=== PATIENT | male | born 1975 | race Caucasian/White ===

== ENCOUNTER 2017-12-04 07:15 | Emergency (ER) | payer BC, OTHER ==
[~2017-12-04] VITALS: Ht 175.3 cm; Wt 78.5 kg
[2017-12-04 07:22] VITALS: TEMP 36.9; Ht 175.3 cm; Wt 78.5 kg
[2017-12-04] MEDS ORDERED: MoRPHine SULFATE 10 MG/ML CARP/VIAL IV STA (07:43)
[2017-12-04] MEDS ORDERED: ONDANSETRON INJ 2 MG/ML 2 ML VIAL IV STA (07:43)
[2017-12-04] MEDS ORDERED: KETOROLAC TROMETHAMINE 30 MG/ML VIAL IV STA (07:43)
[2017-12-04] MEDS ORDERED: SODIUM CHLORIDE 0.9% 1000ML 1,000 ML IV STA (07:43)
[2017-12-04] MEDS ORDERED: TAMSULOSIN HCL 0.4 MG CAP PO ONE (07:45)
[2017-12-04 08:26] VITALS: O2SAT 98
[2017-12-04 08:49] LABS: BASO % 0.3 %; BASO ABS # 0.02 K/uL (0-0.2); EOS % 2.2 %; EOS ABS # 0.14 K/uL (0-0.5); HEMATOCRIT 40.9 % (42-52); HEMOGLOBIN 14.3 g/dL (14.0-18.0); IG# 0.01 K/uL (0.00-0.02); LYMPH % 21.1 %; LYMPH ABS # 1.34 K/uL (1.2-3.4); MEAN CELL VOLUME 91.1 fL (80-100); MEAN CORPUSCULAR HEMOGLOBIN 31.8 pg (25-34); MEAN PLATELET VOLUME 9.8 fL (7.4-10.4); MONO % 10.1 %; MONO ABS # 0.64 K/uL (0.11-0.59); NEUT % 66.1 %; NEUT ABS # 4.19 K/uL (1.4-6.5); PLATELET COUNT 154 K/uL (130-400); RED CELL DISTRIBUTION WIDTH CV 13.3 % (11.5-14.5); RED CELL DISTRIBUTION WIDTH SD 43.9 fL (36.4-46.3); WHITE BLOOD COUNT 6.34 K/uL (4.8-10.8)
--- NOTE | 2017-12-04 09:10 | DIAGNOSTIC IMAGING REPORT ---
CT SCAN OF THE ABDOMEN AND PELVIS WITHOUT IV CONTRAST CLINICAL HISTORY: Right flank pain. Hematuria. COMPARISON STUDY: No priors. TECHNIQUE: CT scan of the abdomen and pelvis is performed from the lung bases to the proximal femora. Images are reviewed in the axial, sagittal, and coronal planes. IV contrast was not administered for this examination. A dose lowering technique was utilized adhering to the principles of ALARA. CT DOSE: 589.11 mGy.cm FINDINGS: Lung bases: The heart is normal in size and without pericardial effusion. Small fat-containing Bochdalek hernias are present at both lung bases. No airspace consolidation or pleural effusion is identified. An indeterminant but low suspicion 3 mm right middle lobe pulmonary nodule is seen on image #18. Liver: The unenhanced liver is top normal in size and demonstrates diffusely diminished attenuation consistent with hepatic steatosis. Fatty sparing is noted adjacent to gallbladder fossa. There is no intrahepatic biliary ductal dilatation. Gallbladder: Unremarkable. Spleen: Normal in size and attenuation. Pancreas: Unremarkable. Adrenal glands: Unremarkable. Kidneys: The unenhanced kidneys are normal in size. There is a 5 mm obstructing calculus in the right proximal ureter at the level of L3 located just below the ureteropelvic junction seen on axial image #198. This causes mild right hydronephrosis with associated perinephric stranding. No additional calculi are identified in either kidney. There is no evidence of contour deforming renal mass lesion. Abdominal vasculature: The abdominal aorta is normal in course and caliber. Bowel: There is mild colonic fecal retention. No bowel obstruction is seen. The appendix is well-visualized and normal. Peritoneum: There is no intraperitoneal free air or abdominal ascites. Lymphadenopathy: None. Pelvic viscera: The bladder, prostate, and seminal vesicles are normal as imaged. There is a tiny fat-containing right inguinal hernia. Skeletal structures: No lytic or blastic lesions are seen. IMPRESSION: 1. There is a 5 mm obstructing calculus in the right proximal ureter located just below the ureteropelvic junction. This causes mild right hydronephrosis. 2. No additional calculi are identified in either kidney. 3. Hepatic steatosis. 4. Additional findings as above. Electronically signed by: Corey Clarke M.D. 12/04/2017 9:08 AM Dictated Date/Time: 12/04/2017 9:01 AM
[2017-12-04 09:15] LABS: CALCIUM 8.6 mg/dl (8.5-10.1); CREATININE 1.04 mg/dl (0.60-1.40)
[2017-12-04 09:37] VITALS: BP 133/95; PULSE 76; O2SAT 98
[2017-12-04] MEDS ORDERED: OXYC-737 PO (09:38)
[2017-12-04] MEDS ORDERED: TAMS0.4C38 PO (09:38)
[2017-12-04] MEDS ORDERED: ONDA4TAB10 SL (09:38)
--- NOTE | 2017-12-04 09:39 | EMERGENCY ROOM VISIT NOTE ---
History First contact with patient: 07:24 Chief Complaint: BACK PAIN Stated Complaint: PAIN IN BACK NEAR KIDNEY History of Present Illness The patient is a 42 year old male who presents to the Emergency Room with complaints of right flank pain which started this morning when he got out of bed. He was unsure if he twisted his back when he got up but the pain is different than he had in the past with the muscular skeletal strain. Patient states the pain comes and goes. It is a sharp pain and doubles him over. He denies any associated nausea vomiting or change in bowel habits. The patient denies any fever but states when he gets his attacks of pain he gets clammy. The patient states that he has been trying to drink a lot of water this morning. He has not urinated yet this morning. The patient denies any dysuria , hematuria, urgency or dysuria. The patient denies any personal history of kidney stones but does admit to a family history of kidney stones. He is followed by [facility] PCP. Review of Systems 10 system review was performed and was negative unless stated otherwise history of present illness. Past Medical/Surgical History Medical Problems: (1) Epilepsy Family History Heart disease Social History Smoking Status: Never Smoker Drug Use: none Marital Status: Housing Status: lives with family Occupation Status: employed Current/Historical Medications Scheduled Lamotrigine (Lamictal), 300 MG PO AMHS Physical Exam Vital Signs Date Time Temp Pulse Resp B/P (MAP) Pulse Ox O2 Delivery O2 Flow Rate FiO2 12/04/17 08:26 98 Room Air 12/04/17 08:25 76 20 127/90 96 Room Air 12/04/17 07:22 36.9 80 18 146/92 96 Room Air Physical Exam GENERAL: 42-year-old white male appears in no acute distress. MENTAL Status: Alert and oriented 3. MOUTH: Mucosa is moist NECK: Supple, no lymphadenopathy noted. No carotid bruits noted. LUNGS: Clear auscultation without wheezes rales or rhonchi. CARDIAC: Regular rate and rhythm without murmur. Pulses is full and equal throughout. BACK: No CVA tenderness noted. ABDOMEN: Positive bowel sounds all 4 quadrants. Soft, nontender to palpation without organomegaly or masses. EXTREMITIES: No cyanosis or edema noted. Medical Decision & Procedures ER Provider Diagnostic Interpretation: CT SCAN OF THE ABDOMEN AND PELVIS WITHOUT IV CONTRAST CLINICAL HISTORY: Right flank pain. Hematuria. COMPARISON STUDY: No priors. TECHNIQUE: CT scan of the abdomen and pelvis is performed from the lung bases to the proximal femora. Images are reviewed in the axial, sagittal, and coronal planes. IV contrast was not administered for this examination. A dose lowering technique was utilized adhering to the principles of ALARA. CT DOSE: 589.11 mGy.cm FINDINGS: Lung bases: The heart is normal in size and without pericardial effusion. Small fat-containing Bochdalek hernias are present at both lung bases. No airspace consolidation or pleural effusion is identified. An indeterminant but low suspicion 3 mm right middle lobe pulmonary nodule is seen on image #18. Liver: The unenhanced liver is top normal in size and demonstrates diffusely diminished attenuation consistent with hepatic steatosis. Fatty sparing is noted adjacent to gallbladder fossa. There is no intrahepatic biliary ductal dilatation. Gallbladder: Unremarkable. Spleen: Normal in size and attenuation. Pancreas: Unremarkable. Adrenal glands: Unremarkable. Kidneys: The unenhanced kidneys are normal in size. There is a 5 mm obstructing calculus in the right proximal ureter at the level of L3 located just below the ureteropelvic junction seen on axial image #198. This causes mild right hydronephrosis with associated perinephric stranding. No additional calculi are identified in either kidney. There is no evidence of contour deforming renal mass lesion. Abdominal vasculature: The abdominal aorta is normal in course and caliber. Bowel: There is mild colonic fecal retention. No bowel obstruction is seen. The appendix is well-visualized and normal. Peritoneum: There is no intraperitoneal free air or abdominal ascites. Lymphadenopathy: None. Pelvic viscera: The bladder, prostate, and seminal vesicles are normal as imaged. There is a tiny fat-containing right inguinal hernia. Skeletal structures: No lytic or blastic lesions are seen. IMPRESSION: 1. There is a 5 mm obstructing calculus in the right proximal ureter located just below the ureteropelvic junction. This causes mild right hydronephrosis. 2. No additional calculi are identified in either kidney. 3. Hepatic steatosis. 4. Additional findings as above. Electronically signed by: Corey Clarke M.D. 12/04/2017 9:08 AM Laboratory Results 12/04/17 08:38 Red Blood Count 4.49, Mean Corpuscular Volume 91.1, Mean Corpuscular Hemoglobin 31.8, Mean Corpuscular Hemoglobin Concent 35.0, Mean Platelet Volume 9.8, Neutrophils (%) (Auto) 66.1, Lymphocytes (%) (Auto) 21.1, Monocytes (%) (Auto) 10.1, Eosinophils (%) (Auto) 2.2, Basophils (%) (Auto) 0.3, Neutrophils # (Auto ) 4.19, Lymphocytes # (Auto) 1.34, Monocytes # (Auto) 0.64, Eosinophils # (Auto ) 0.14, Basophils # (Auto) 0.02 12/04/17 08:38 Test 12/04/17 08:27 12/04/17 08:38 Urine Color YELLOW Urine Appearance CLEAR (CLEAR) Urine pH 5.0 (4.5-7.5) Urine Specific Saffell 1.025 (1.000-1.030) Urine Protein NEG (NEG) Urine Glucose (UA) NEG (NEG) Urine Ketones 3+ (NEG) Urine Occult Blood 3+ (NEG) Urine Nitrite NEG (NEG) Urine Bilirubin NEG (NEG) Urine Urobilinogen NEG (NEG) Urine Leukocyte Esterase NEG (NEG) Urine WBC (Auto) 1-5 /hpf (0-5) Urine RBC (Auto) >30 /hpf (0-4) Urine Hyaline Casts (Auto) 1-5 /lpf (0-5) Urine Epithelial Cells (Auto) 0-5 /lpf (0-5) Urine Bacteria (Auto) NEG (NEG) White Blood Count 6.34 K/uL (4.8-10.8) Red Blood Count 4.49 M/uL (4.7-6.1) Hemoglobin 14.3 g/dL (14.0-18.0) Hematocrit 40.9 % (42-52) Mean Corpuscular Volume 91.1 fL (80-100) Mean Corpuscular Hemoglobin 31.8 pg (25-34) Mean Corpuscular Hemoglobin Concent 35.0 g/dl (32-36) Platelet Count 154 K/uL (130-400) Mean Platelet Volume 9.8 fL (7.4-10.4) Neutrophils (%) (Auto) 66.1 % Lymphocytes (%) (Auto) 21.1 % Monocytes (%) (Auto) 10.1 % Eosinophils (%) (Auto) 2.2 % Basophils (%) (Auto) 0.3 % Neutrophils # (Auto) 4.19 K/uL (1.4-6.5) Lymphocytes # (Auto) 1.34 K/uL (1.2-3.4) Monocytes # (Auto) 0.64 K/uL (0.11-0.59) Eosinophils # (Auto) 0.14 K/uL (0-0.5) Basophils # (Auto) 0.02 K/uL (0-0.2) RDW Standard Deviation 43.9 fL (36.4-46.3) RDW Coefficient of Variation 13.3 % (11.5-14.5) Immature Granulocyte % (Auto) 0.2 % Immature Granulocyte # (Auto) 0.01 K/uL (0.00-0.02) Anion Gap 6.0 mmol/L (3-11) Est Creatinine Clear Calc Drug Dose 90.7 ml/min Estimated GFR () 100.7 Estimated GFR (Non- 86.9 BUN/Creatinine Ratio 13.5 (10-20) Calcium Level 8.6 mg/dl (8.5-10.1) Medications Administered Medications (Trade) Dose Ordered Sig/Ashely Route Start Time Stop Time Status Last Admin Dose Admin Sodium Chloride 1,000 ml @ 999 mls/hr Q1H1M STAT IV 12/04/17 07:43 12/04/17 08:43 DC 12/04/17 07:43 999 MLS/HR Ondansetron HCl (Zofran Inj) 4 mg NOW STAT IV 12/04/17 07:43 12/04/17 07:47 DC 12/04/17 08:37 4 MG Morphine Sulfate (MoRPHine SULFATE INJ) 6 mg NOW STAT IV 12/04/17 07:43 12/04/17 07:47 DC 12/04/17 08:39 6 MG Ketorolac Tromethamine (Toradol Inj) 30 mg NOW STAT IV 12/04/17 07:43 12/04/17 07:47 DC 12/04/17 08:38 30 MG Tamsulosin HCl (Flomax Cap) 0.4 mg NOW ONCE PO 12/04/17 07:45 12/04/17 07:47 DC 12/04/17 08:38 0.4 MG ED Course The patient was evaluated. Patient's EMR medication list were reviewed. IV access was obtained. The patient was given 1 L of normal saline wide open. The patient was given Zofran 4 mg IV push, morphine 6 mg IV, Toradol 30 mg IV and Flomax 0.4 mg p.o. CBC and differential, renal profile, urinalysis was ordered. CT stone study was ordered interpreted by the radiologist as above with a 5 mm stone at the right proximal ureter labs are reviewed and were unremarkable. Urinalysis revealed ketones and blood but no evidence of infection. The patient was informed of all findings. I consulted Dr. Yolanda Tapia about the patient. She stated that she will place him on the OR schedule for Saturday in case he does not pass the stone in the next 2 days. The patient was resting comfortably on reevaluation. Patient was discharged home in stable condition. Medical Decision Differential diagnosis include UTI, pyelonephritis, ureteral calculi, lumbar strain [place] Drug Monitoring Program Search Results: patient reviewed within database Medication Reconcilliation Current Medication List: was personally reviewed by me Blood Pressure Screening Patient's blood pressure: Normal blood pressure Impression Primary Impression: Ureteral calculus, right Departure Information Dispostion Home / Self-Care Condition GOOD Prescriptions Oxycodone Immediate Rel Tab (ROXICODONE IR) 5 Mg Tab 1-2 TAB PO Q4H Y for Pain, #24 TAB Prov: Hiwot Peña PA-C 12/04/17 Ondasetron Odt (ZOFRAN ODT) 4 Mg Tab 4 MG SL Q6H for Nausea, #10 TAB Prov: Hiwot Peña PA-C 12/04/17 Tamsulosin Hcl (FLOMAX) 0.4 Mg Cap 0.4 MG PO DAILY for 7 Days, #7 CAP Prov: Hiwot Peña PA-C 12/04/17 Referrals Eulogio Villafana M.D. ([facility]) (PCP) Forms HOME CARE DOCUMENTATION FORM, IMPORTANT VISIT INFORMATION Patient Instructions Kidney Stones - [facility], [facility] Additional Instructions Strain all urine. Push fluids. Ibuprofen 600 mg every 6 hours with food for pain. Take OxyIR as needed for more severe pain. Do not drive while taking the OxyIR. Take Flomax daily as prescribed. Take Zofran as needed for nausea. If you experience any high fevers or uncontrolled pain return to the ER. Dr. Tapia office will be calling you today for an appointment time on Saturday. Please follow all her instructions.
[2017-12-04] MEDS ORDERED: LAMO150T PO (13:35)
[2017-12-05] MEDS ORDERED: OXYC-57 PO (05:58)
== END 2017-12-04 10:03 | disposition home or self-care (01) ==
LOC: C.EDB 07:16 → C.EDA 10:03
DX: N20.2 Calculus of kidney with calculus of ureter (principal); G40.909 Epilepsy, unspecified, not intractable, without status epilepticus; Z79.899 Other long term (current) drug therapy

== ENCOUNTER 2017-12-05 00:09 | Emergency (ER) | payer OTHER ==
[~2017-12-05] VITALS: Ht 175.3 cm; Wt 79.5 kg
[~2017-12-05 00:09] MED LIST: LAMO150T PO; ONDA4TAB10 SL; OXYC-737 PO; TAMS0.4C38 PO
[2017-12-05 00:11] VITALS: TEMP 36.4; Ht 175.3 cm; Wt 79.5 kg
--- NOTE | 2017-12-05 00:27 | EMERGENCY ROOM VISIT NOTE ---
History Report prepared by Violette: John Carter Under the Supervision of: Dr. Lisa Calvo D.O. First contact with patient: 00:16 Chief Complaint: KIDNEY STONE Stated Complaint: KIDNEY STONE History of Present Illness The patient is a 42 year old male who presents to the Emergency Room with complaints of constant right abdominal pain beginning yesterday. The patient states that he woke up yesterday with abdominal pain. He notes that he came into the emergency department and was diagnosed with a 4-5mm kidney stone on the right. He reports that he was discharged with medication and felt fine for the rest of the day. The patient states that his pain started to return tonight. He notes that he took two oxycodone tablets but then became nauseous and vomited. He reports that he is unsure if he vomited the two oxycodone tablets back up. The patient states that he then took one more oxycodone tablet with no relief of his pain. He notes that his current pain is worse than it was yesterday. He reports that his pain is moving downward and feels like a " stomach cramp." The patient states that he is unable to urinate due to pain. He also complains of cold sweats. He denies any change in appearance of his urine. He notes that he has a family history of kidney stones. He reports that he drank 64 ounces of water today. Source of History: patient Onset: yesterday Position: abdomen (right) Quality: cramping Timing: constant Associated Symptoms: + nausea, + vomiting Note: The patient also complains of the inability to urinate and cold sweats. He denies any change in appearance of his urine. Review of Systems See HPI for pertinent positives & negatives. A total of 10 systems reviewed and were otherwise negative. Past Medical & Surgical Medical Problems: (1) Epilepsy (2) Hernia (3) Kidney stone Family History Heart disease Hypertension Kidney stones Lung disease Social History Smoking Status: Never Smoker Drug Use: none Marital Status: Housing Status: lives with family Occupation Status: employed Current/Historical Medications Scheduled Lamotrigine (Lamictal), 300 MG PO AMHS Ondasetron Odt (Zofran Odt), 4 MG SL Q6H Tamsulosin Hcl (Flomax), 0.4 MG PO DAILY Scheduled PRN Oxycodone Immediate Rel Tab (Roxicodone Ir), 1-2 TAB PO Q4H PRN for Pain Oxycodone/Acetaminophen 5MG/325MG (Percocet 5MG/325MG), 1-2 TABS PO Q4H PRN for Pain Allergies Coded Allergies: No Known Allergies (Unverified , 12/05/17) Physical Exam Vital Signs Date Time Temp Pulse Resp B/P (MAP) Pulse Ox O2 Delivery O2 Flow Rate FiO2 12/05/17 06:13 60 18 121/82 99 12/05/17 05:05 68 16 125/89 98 Room Air 12/05/17 02:52 65 16 131/90 97 Room Air 12/05/17 01:38 69 18 124/83 95 Room Air 12/05/17 00:11 36.4 75 20 137/89 99 Room Air Physical Exam GENERAL: alert, uncomfortable appearing, well nourished, in mild distress, non- toxic EYE EXAM: normal conjunctiva, PERRL and EOM's grossly intact OROPHARYNX: no exudate, no erythema, lips, buccal mucosa, and tongue normal and mucous membranes are dry NECK: supple, no nuchal rigidity, no adenopathy, non-tender LUNGS: Clear to auscultation. Normal chest wall mechanics HEART: no murmurs, S1 normal and S2 normal ABDOMEN: abdomen soft, non-tender, normo-active bowel sounds, no masses, no rebound or guarding. BACK: Back is symmetrical on inspection and there is no deformity, no midline tenderness, no CVA tenderness. SKIN: no rashes and no bruising UPPER EXTREMITIES: upper extremities are grossly normal. LOWER EXTREMITIES: No pitting edema. NEURO EXAM: Normal sensorium, cranial nerves II-XII grossly intact, normal speech, no gross weakness of arms, no gross weakness of legs. Medical Decision & Procedures Laboratory Results 12/05/17 00:40 12/05/17 00:40 Test 12/05/17 00:40 12/05/17 01:28 Red Blood Count 4.78 M/uL (4.7-6.1) Mean Corpuscular Volume 91.4 fL (80-100) Mean Corpuscular Hemoglobin 32.0 pg (25-34) Mean Corpuscular Hemoglobin Concent 35.0 g/dl (32-36) RDW Standard Deviation 44.0 fL (36.4-46.3) RDW Coefficient of Variation 13.3 % (11.5-14.5) Mean Platelet Volume 9.7 fL (7.4-10.4) Anion Gap 15.0 mmol/L (3-11) Est Creatinine Clear Calc Drug Dose 92.5 ml/min Estimated GFR () 103.1 Estimated GFR (Non- 89.0 BUN/Creatinine Ratio 10.6 (10-20) Calcium Level 8.9 mg/dl (8.5-10.1) Urine Color YELLOW Urine Appearance CLEAR (CLEAR) Urine pH 5.0 (4.5-7.5) Urine Specific Marshall 1.024 (1.000-1.030) Urine Protein NEG (NEG) Urine Glucose (UA) NEG (NEG) Urine Ketones 4+ (NEG) Urine Occult Blood 2+ (NEG) Urine Nitrite NEG (NEG) Urine Bilirubin NEG (NEG) Urine Urobilinogen NEG (NEG) Urine Leukocyte Esterase NEG (NEG) Urine WBC (Auto) 0 /hpf (0-5) Urine RBC (Auto) 10-30 /hpf (0-4) Urine Hyaline Casts (Auto) 1-5 /lpf (0-5) Urine Epithelial Cells (Auto) 0-5 /lpf (0-5) Urine Bacteria (Auto) NEG (NEG) Laboratory results per my review. Medications Administered Medications (Trade) Dose Ordered Sig/Ashely Route Start Time Stop Time Status Last Admin Dose Admin Sodium Chloride 1,000 ml @ 999 mls/hr Q1H1M STAT IV 12/05/17 00:28 12/05/17 01:28 DC 12/05/17 00:47 999 MLS/HR Ketorolac Tromethamine (Toradol Inj) 15 mg NOW STAT IV 12/05/17 00:28 12/05/17 00:30 DC 12/05/17 00:45 15 MG Ondansetron HCl (Zofran Inj) 4 mg NOW STAT IV 12/05/17 00:28 12/05/17 00:30 DC 12/05/17 00:43 4 MG Sodium Chloride 1,000 ml @ 999 mls/hr Q1H1M STAT IV 12/05/17 01:17 12/05/17 02:17 DC 12/05/17 01:37 999 MLS/HR Fentanyl Citrate (Fentanyl Inj) 75 mcg NOW STAT IV 12/05/17 01:17 12/05/17 01:18 DC 12/05/17 01:37 75 MCG Hydromorphone HCl (Dilaudid Inj) 0.5 mg NOW STAT IV 12/05/17 02:34 12/05/17 02:35 DC 12/05/17 02:50 0.5 MG Sodium Chloride 1,000 ml @ 125 mls/hr Q8H STAT IV 12/05/17 02:34 12/05/17 06:43 DC 12/05/17 02:34 125 MLS/HR Tamsulosin HCl (Flomax Cap) 0.4 mg NOW ONCE PO 12/05/17 02:45 12/05/17 02:46 DC 12/05/17 02:49 0.4 MG Fentanyl Citrate (Fentanyl Inj) 50 mcg NOW STAT IV 12/05/17 04:01 12/05/17 04:03 DC 12/05/17 04:08 50 MCG Oxycodone/ Acetaminophen (Percocet 5-325mg Tab) 2 tab NOW ONCE PO 12/05/17 04:15 12/05/17 04:16 DC 12/05/17 04:08 2 TAB Ketorolac Tromethamine (Toradol Inj) 30 mg NOW STAT IV 12/05/17 05:20 12/05/17 05:21 DC 12/05/17 06:09 30 MG ED Course 0017: The patient was evaluated in room B11. A complete history and physical exam was performed. 0028: Zofran Inj 4mg IV, Toradol Inj 15mg IV, Sodium Chloride 1000 ml @ 999 mls/ hr IV 0115: I reevaluated and updated the patient. He states that he is no longer nauseous but is still having pain. He notes that his pain is now lower and radiates down into his testicle. 0117: Fentanyl Inj 75mcg IV, Sodium Chloride 1000 ml @ 999 mls/hr IV 0234: Dilaudid Inj 0.5mg IV 0245: Flomax Cap 0.4mg PO 0255: I rechecked the patient. He rates his current pain as a 6/10. 0401: Fentanyl Inj 50mcg IV 0415: Oxycodone/Acetaminophen 2 tab PO 0535: Patient states still having intermittent episodes of pain, however they are less severe than prior. Episodes are slightly worse with movement. Discussed with patient admission versus discharge home given that he has an appointment in a few hours with Dr. Tapia. He opted to go home and will keep his appointment later on today. Discussed use of pain medication at home, need for adequate hydration, he verbalized understanding was agreeable with plan. Medical Decision Differential diagnosis: Etiologies such as renal colic, appendicitis, diverticulitis, mesenteric ischemia, aortic pathology, infections, inflammatory bowel disease, PUD, biliary pathology, UTI, as well as others were entertained. Patient well-appearing here despite complaints. No acute kidney injury evident , no evidence of evolving urinary rivera. Mild leukocytosis likely secondary to vomiting earlier. Patient rehydrated here, and during his time here he did feel that his pain was moving and had become very low with radiation of the testicle. Given that the CT yesterday showed that the stone was in the proximal ureter, I discussed with him that the stone is likely moving. He does have an appointment later today with Dr. Tapia. Patient observed for several hours as a precaution to assure that his pain would be controlled, but he did not have recurrent vomiting, or develop fevers. Discussed with patient options of admission versus discharge, and patient opted to go home and follow-up in the next several hours with his scheduled urology appointment. Patient did feel improved pain relief with oxycodone/acetaminophen compared to the pain medications he was discharged on yesterday. Discussed with patient symptoms to watch and return for, he verbalized understanding and was agreeable with plan. Pt well appearing at discharge, ambulating with a steady and had been tolerating po for several hours. I do not suspect other acute GI or vascular pathology contributing to his pain. Did not see a need for any repeat imaging at this time. Medication Reconcilliation Current Medication List: was personally reviewed by me Blood Pressure Screening Patient's blood pressure: Normal blood pressure Blood pressure disposition: Did not require urgent referral Impression Primary Impression: Renal colic Additional Impression: Right flank pain Scribe Attestation The scribe's documentation has been prepared under my direction and personally reviewed by me in its entirety. I confirm that the note above accurately reflects all work, treatment, procedures, and medical decision making performed by me. Departure Information Dispostion Home / Self-Care Prescriptions Oxycodone/Acetaminophen 5MG/325MG (PERCOCET 5MG/325MG) Tab 1-2 TABS PO Q4H Y for Pain, #10 TAB Prov: Lisa Calvo, DO 12/05/17 Referrals Eulogio Villafana M.D. ([facility]) (PCP) Patient Instructions My [facility] Additional Instructions Please keep your appointment with Dr. Tapia today. You may use the stronger pain medication every 4 hours. You may also intermittently use an anti- inflammatory such as Motrin or ibuprofen. Please make sure you are sipping clear liquids frequently throughout the day to try and stay well-hydrated. If you develop worsening pain, fevers or chills, nausea vomiting, or unable to urinate, you have any other new concerns, please return the emergency room. Please continue your other routine medications as prescribed. Problem Qualifiers
[2017-12-05] MEDS ORDERED: SODIUM CHLORIDE 0.9% 1000ML 1,000 ML IV STA ×3 (00:28→02:34)
[2017-12-05] MEDS ORDERED: ONDANSETRON INJ 2 MG/ML 2 ML VIAL IV STA (00:28)
[2017-12-05] MEDS ORDERED: KETOROLAC TROMETHAMINE 30 MG/ML VIAL IV STA ×2 (00:28→05:20)
[2017-12-05 01:09] LABS: HEMATOCRIT 43.7 % (42-52); HEMOGLOBIN 15.3 g/dL (14.0-18.0); MEAN CELL VOLUME 91.4 fL (80-100); MEAN PLATELET VOLUME 9.7 fL (7.4-10.4); PLATELET COUNT 177 K/uL (130-400); RED CELL DISTRIBUTION WIDTH CV 13.3 % (11.5-14.5); WHITE BLOOD COUNT 13.34 K/uL (4.8-10.8)
[2017-12-05] MEDS ORDERED: FENTANYL CITRATE INJ 50 MCG/1 ML 2 ML VIAL IV STA ×2 (01:17→04:01)
[2017-12-05 01:32] LABS: CALCIUM 8.9 mg/dl (8.5-10.1); CREATININE 1.02 mg/dl (0.60-1.40); POTASSIUM 3.5 mmol/L (3.5-5.1)
[2017-12-05] MEDS ORDERED: HYDROmorphone INJ 0.5 MG/0.5 ML SYR IV STA (02:34)
[2017-12-05] MEDS ORDERED: TAMSULOSIN HCL 0.4 MG CAP PO ONE (02:45)
[2017-12-05] MEDS ORDERED: OXYCODONE/ACETAMINOPHEN 5-325 TAB PO ONE (04:15)
[2017-12-05] MEDS ORDERED: OXYC-57 PO (05:58)
[2017-12-05] MEDS ORDERED: PERCOCET HOME PACK PO ONE (06:00)
[2017-12-05 06:13] VITALS: BP 121/82; PULSE 60; O2SAT 99
== END 2017-12-05 06:13 | disposition home or self-care (01) ==
LOC: C.EDB 00:09
DX: N23 Unspecified renal colic (principal); R10.9 Unspecified abdominal pain; R11.2 Nausea with vomiting, unspecified; G40.909 Epilepsy, unspecified, not intractable, without status epilepticus; Z79.899 Other long term (current) drug therapy